=== PATIENT | female | born 1990 | race Caucasian/White ===

== ENCOUNTER 2016-10-06 14:42 | Emergency (ER) | payer OTHER ==
[~2016-10-06] VITALS: Ht 160 cm; Wt 59.0 kg
[~2016-10-06 14:42] MED LIST: NAPROSYN500 MG PO; NOHOMEMEDICATIONS
[2016-10-06] MEDS ORDERED: MOBIC15 MG PO (17:11)
[2016-10-06] MEDS ORDERED: CYCLOBENZAPRINE5 MG PO (17:11)
[2016-10-06 18:22] VITALS: BP 118/72
== END 2016-10-06 18:24 | disposition home or self-care (01) ==
LOC: ER 14:42
DX: S16.1XXA Strain of muscle, fascia and tendon at neck level, initial encounter (principal); Z88.8 Allergy status to other drugs, medicaments and biological substances; Z88.4 Allergy status to anesthetic agent; V89.2XXA Person injured in unspecified motor-vehicle accident, traffic, initial encounter; Y93.89 Activity, other specified; Y92.89 Other specified places as the place of occurrence of the external cause; Y99.8 Other external cause status